=== PATIENT | male | born 1995 | race Caucasian/White ===

== ENCOUNTER 2018-11-28 06:49 | Emergency (ER) | payer OTHER ==
[2018-11-28] MEDS ORDERED: HYDROCODONE/ACETAMINOPHEN 5-325 MG TABLET PO ONE (07:16)
[2018-11-28] MEDS ORDERED: ONDANSETRON 4 MG TAB.RAPDIS PO ONE (07:16)
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
[2018-11-28] MEDS ORDERED: MORPHINE SULFATE 10 MG/ML INJ IM ONE (08:16)
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
[2018-11-28 08:54] VITALS: BP 138/72
== END 2018-11-28 08:54 | disposition home or self-care (01) ==
LOC: ER 06:49
DX: S20.212A Contusion of left front wall of thorax, initial encounter (principal); R07.1 Chest pain on breathing; V54.6XXA Passenger in pick-up truck or van injured in collision with heavy transport vehicle or bus in traffic accident, initial encounter; F12.10 Cannabis abuse, uncomplicated; Z88.1 Allergy status to other antibiotic agents
CPT/HCPCS: 99283; 96372; 71101; S0119; J2270

== ENCOUNTER 2018-12-01 13:46 | Emergency (ER) | payer OTHER ==
[2018-12-01 13:52] VITALS: BP 137/96
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
[2018-12-01] MEDS ORDERED: KETOROLAC TROMETHAMINE 60 MG/2 ML SDV IM ONE (15:00)
== END 2018-12-01 15:08 | disposition home or self-care (01) ==
LOC: ER 13:46
DX: R07.81 Pleurodynia (principal); V49.9XXA Car occupant (driver) (passenger) injured in unspecified traffic accident, initial encounter; Z91.14 Patient's other noncompliance with medication regimen
CPT/HCPCS: 99283; 96372; 71101; J1885